=== PATIENT | male | born 1940 | race Caucasian/White ===

== ENCOUNTER 2020-08-09 12:53 | Inpatient (IN) | payer OTHER, MEDICARE ==
[2020-08-09] VITALS (46 sets, daily range): BP systolic 99–120; BP diastolic 45–66
[~2020-08-09] VITALS: Ht 185.4 cm; Wt 87.9 kg
[2020-08-09] MEDS: HEPARIN DRIP/D5W 100UNITS/ML 250 ML IV SCH (14:15)
[2020-08-09] MEDS ORDERED: HEPARIN SODIUM (PORCINE) 5000 UNITS/ML 1ML VIAL IV ONE (14:15)
[2020-08-09] MEDS ORDERED: FER325T PO (14:38)
[2020-08-09] MEDS ORDERED: SUCR1SUS10 GT (14:38)
[2020-08-09] MEDS ORDERED: AMLO-489 PO (14:39)
[2020-08-09] MEDS ORDERED: PANT40PA PO (14:40)
[2020-08-09] MEDS: NOREPINEPHRINE 8 MG/250ML KIT 250 ML IV SCH (15:40)
[2020-08-09] MEDS: MIDAZOLAM DRIP 50 mg/50mL 50 ML IV SCH ×2 (15:48→22:27)
[2020-08-09 16:26] LABS: Basophils # (auto) 0 10 ^3/uL (0-0.2); Basophils % (auto) 0.1 % (0.0-2.0); Eosinophils # (auto) 0 10 ^3/uL (0-0.8); Eosinophils % (auto) 0.1 % (0.0-7.0); Hematocrit 26.2 % (41.0-53.0); Hemoglobin 9.2 g/dL (13.5-17.5); Lymphocytes # (auto) 2.7 10 ^3/uL (0.4-5.4); Lymphocytes % (auto) 16.8 % (10.0-50.0); Mean Corpuscular Hemoglobin 34.2 pg (28.0-32.0); Mean Corpuscular Hgb Conc. 35.2 g/dL (32.0-36.0); Mean Corpuscular Volume 97.2 fL (80.0-100.0); Monocytes # (auto) 1.4 10 ^3/uL (0-1.3); Monocytes % (auto) 8.6 % (0.0-12.0); Neutrophils # (auto) 12.1 10 ^3/uL (1.6-8.6); Neutrophils % (auto) 74.4 % (37.0-80.0); Nucleated Red Blood Cells % 0.9 %; Platelet Count (auto) 195 10^3/uL (140-450); White Blood Cell 16.3 10^3/uL (4.4-10.8)
[2020-08-09 16:27] LABS: Red Cell Distribution Width 26.2 % (11.8-14.3)
[2020-08-09 16:40] LABS: INR 1.23 (0.9-1.15)
[2020-08-09 16:41] LABS: BUN/Creatinine Ratio 38.6; Calcium 8.2 mg/dL (8.5-10.1); Potassium 3.5 mmol/L (3.5-5.1)
[2020-08-09] MEDS: PROPOFOL 100 ML IV SCH (17:36)
[2020-08-09 17:47] LABS: Urine Amorphous Crystal FEW /hpf (None Seen); Urine Bacteria NONE SEEN /hpf (None Seen); Urine Blood 2+ /uL (Negative); Urine Specific Gravity 1.022 (1.001-1.035); Urine WBC 4 /hpf (0 - 3)
[2020-08-09] MEDS: PIPERACILLIN-TAZO 4.5GM 100 ML IV SCH (21:45)
[2020-08-09] MEDS: IPRATROPIUM BROM 0.5 MG/2.5ML INH SOL NEB SCH (22:07)
[2020-08-09 22:48] LABS: INR 1.22 (0.9-1.15); Partial Thromboplastin Time 61.5 sec (23.0-31.2)
[2020-08-10] VITALS (94 sets, daily range): BP systolic 106–133; BP diastolic 37–57
[2020-08-10 00:11] LABS: Magnesium 2.9 mg/dL (1.6-2.6)
[2020-08-10 00:41] LABS: Potassium 3.6 mmol/L (3.5-5.1)
[2020-08-10] MEDS: MIDAZOLAM DRIP 50 mg/50mL 50 ML IV SCH ×6 (02:11→22:24)
[2020-08-10] MEDS: PROPOFOL 100 ML IV SCH (04:34)
[2020-08-10 04:50] LABS: Basophils # (auto) 0 10 ^3/uL (0-0.2); Basophils % (auto) 0.1 % (0.0-2.0); Eosinophils # (auto) 0 10 ^3/uL (0-0.8); Hematocrit 25.5 % (41.0-53.0); Lymphocytes # (auto) 2.6 10 ^3/uL (0.4-5.4); Lymphocytes % (auto) 22.2 % (10.0-50.0); Mean Corpuscular Hemoglobin 34.8 pg (28.0-32.0); Mean Corpuscular Hgb Conc. 35.2 g/dL (32.0-36.0); Mean Corpuscular Volume 98.9 fL (80.0-100.0); Monocytes # (auto) 1.1 10 ^3/uL (0-1.3); Monocytes % (auto) 9.7 % (0.0-12.0); Nucleated Red Blood Cells % 0.9 %; Platelet Count (auto) 182 10^3/uL (140-450); Red Blood Cells 2.58 10^6/uL (4.5-5.90); White Blood Cell 11.7 10^3/uL (4.4-10.8)
[2020-08-10 04:53] LABS: Calcium 8.1 mg/dL (8.5-10.1); Potassium 3.5 mmol/L (3.5-5.1)
[2020-08-10 04:54] LABS: Red Cell Distribution Width 27.2 % (11.8-14.3)
[2020-08-10 04:56] LABS: BUN/Creatinine Ratio 41.3
[2020-08-10 05:15] LABS: INR 1.18 (0.9-1.15); Partial Thromboplastin Time 54.6 sec (23.0-31.2)
[2020-08-10] MEDS: PIPERACILLIN-TAZO 4.5GM 100 ML IV SCH ×3 (05:17→21:35)
[2020-08-10] MEDS: IPRATROPIUM BROM 0.5 MG/2.5ML INH SOL NEB SCH ×3 (06:08→18:27)
[2020-08-10] MEDS: NOREPINEPHRINE 8 MG/250ML KIT 250 ML IV SCH (09:02)
[2020-08-10] MEDS: ASPirin 81 mg TAB PO SCH (09:23)
[2020-08-10] MEDS: PANTOPRAZOLE 40 MG TAB PO SCH (09:23)
[2020-08-10 10:42] LABS: INR 1.18 (0.9-1.15); Partial Thromboplastin Time 57.3 sec (23.0-31.2)
[2020-08-10] MEDS ORDERED: LIDOCAINE 2%HCL (LOCAL ANESTH.) INJ 20ML MDV ONE (12:12)
[2020-08-10] MEDS ORDERED: IOHEXOL 350 MG/ML 100ML IJ ONE (12:12)
[2020-08-10] MEDS ORDERED: SODIUM CHL 0.9% 0 ML ONE (14:29)
[2020-08-10] MEDS ORDERED: ANGIOMAX 250 MG VIAL IV ONE (14:29)
[2020-08-10] MEDS: HEPARIN DRIP/D5W 100UNITS/ML 250 ML IV SCH (16:30)
[2020-08-11] VITALS (98 sets, daily range): BP systolic 96–138; BP diastolic 42–70
[2020-08-11] MEDS: MIDAZOLAM DRIP 50 mg/50mL 50 ML IV SCH (01:45)
[2020-08-11 04:31] LABS: Hemoglobin 8.7 g/dL (13.5-17.5); Platelet Count (auto) 127 10^3/uL (140-450)
[2020-08-11 04:32] LABS: Hematocrit 24.3 % (41.0-53.0); Mean Corpuscular Hemoglobin 36.1 pg (28.0-32.0); Mean Corpuscular Hgb Conc. 35.9 g/dL (32.0-36.0); Mean Corpuscular Volume 100.5 fL (80.0-100.0); Red Blood Cells 2.42 10^6/uL (4.5-5.90); White Blood Cell 6.4 10^3/uL (4.4-10.8)
[2020-08-11 04:34] LABS: Calcium 8.7 mg/dL (8.5-10.1); Potassium 3.8 mmol/L (3.5-5.1)
[2020-08-11 04:36] LABS: BUN/Creatinine Ratio 34.9
[2020-08-11 04:38] LABS: Basophils % (manual) 0 (0.0-2.0); Blast Cells 0; Eosinophils % (manual) 0 (0-7); Metamyelocytes % 0; Promyelocytes % 0; Reactive Lymphocytes 0
[2020-08-11] MEDS: PIPERACILLIN-TAZO 4.5GM 100 ML IV SCH ×3 (05:47→20:53)
[2020-08-11] MEDS: IPRATROPIUM BROM 0.5 MG/2.5ML INH SOL NEB SCH ×3 (06:00→20:06)
[2020-08-11 07:03] LABS: Band Neutrophils % (manual) 6; Lymphocytes % (manual) 43 (10.0-50.0); Monocytes % (manual) 6 (0-12); Myelocytes % 2
[2020-08-11] MEDS: PANTOPRAZOLE 40 MG TAB PO SCH (10:00)
[2020-08-11] MEDS: ASPirin 81 mg TAB PO SCH (10:00)
[2020-08-11] MEDS: DOBUTamine 1000MCG/ML 250 ML IV SCH (14:20)
[2020-08-11] MEDS: PROPOFOL 100 ML IV SCH ×2 (14:45→21:29)
[2020-08-11] MEDS: NOREPINEPHRINE 8 MG/250ML KIT 250 ML IV SCH (14:45)
[2020-08-11] MEDS: AMIODARONE HCL 200 MG TAB NG SCH (20:53)
[2020-08-12] VITALS (83 sets, daily range): BP systolic 103–140; BP diastolic 43–64
[2020-08-12 00:45] LABS: Hemoglobin 7.5 g/dL (13.5-17.5); Mean Corpuscular Volume 101.2 fL (80.0-100.0); Platelet Count (auto) 100 10^3/uL (140-450)
[2020-08-12 00:46] LABS: Hematocrit 22.1 % (41.0-53.0); Mean Corpuscular Hemoglobin 34.5 pg (28.0-32.0); Mean Corpuscular Hgb Conc. 34.1 g/dL (32.0-36.0); Red Blood Cells 2.18 10^6/uL (4.5-5.90); White Blood Cell 12.4 10^3/uL (4.4-10.8)
[2020-08-12 00:59] LABS: BUN/Creatinine Ratio 33.7; Calcium 8.2 mg/dL (8.5-10.1); Magnesium 2.7 mg/dL (1.6-2.6); Potassium 3.9 mmol/L (3.5-5.1)
[2020-08-12 01:01] LABS: Red Cell Distribution Width 28.1 % (11.8-14.3)
[2020-08-12 01:02] LABS: Basophils % (manual) 0 (0.0-2.0); Blast Cells 0; Eosinophils % (manual) 0 (0-7); Metamyelocytes % 0; Promyelocytes % 0; Reactive Lymphocytes 0
[2020-08-12 03:43] LABS: Band Neutrophils % (manual) 17; Lymphocytes % (manual) 31 (10.0-50.0); Monocytes % (manual) 6 (0-12); Myelocytes % 1
[2020-08-12] MEDS: IPRATROPIUM BROM 0.5 MG/2.5ML INH SOL NEB SCH ×3 (06:17→22:20)
[2020-08-12] MEDS: PIPERACILLIN-TAZO 4.5GM 100 ML IV SCH ×2 (06:19→13:41)
[2020-08-12] MEDS: ACETAMINOPHEN 500 MG TAB PO PRN (06:53)
[2020-08-12] MEDS: AMIODARONE HCL 200 MG TAB NG SCH ×2 (09:42→23:06)
[2020-08-12] MEDS: PANTOPRAZOLE 40 MG TAB PO SCH (09:42)
[2020-08-12] MEDS: ASPirin 81 mg TAB PO SCH (09:42)
[2020-08-12] MEDS: DOBUTamine 1000MCG/ML 250 ML IV SCH (10:17)
[2020-08-12] MEDS: MIDAZOLAM DRIP 50 mg/50mL 50 ML IV SCH (14:45)
[2020-08-12] MEDS: NOREPINEPHRINE 8 MG/250ML KIT 250 ML IV SCH (14:45)
[2020-08-12] MEDS ORDERED: FUROSEMIDE 40 MG/4 ML VIAL IV ONE (23:00)
[2020-08-13] VITALS (33 sets, daily range): BP systolic 112–138; BP diastolic 43–81
[2020-08-13] MEDS: PIPERACILLIN-TAZO 4.5GM 100 ML IV SCH ×4 (00:07→21:39)
[2020-08-13] MEDS ORDERED: HYDROcodone-ACET 5/325MG TAB PO ONE (03:00)
[2020-08-13] MEDS ORDERED: HYDROcodone-ACET 5/325MG TAB ONE (03:07)
[2020-08-13 04:49] LABS: Hemoglobin 8.2 g/dL (13.5-17.5); Mean Corpuscular Hgb Conc. 35.9 g/dL (32.0-36.0)
[2020-08-13 04:52] LABS: Mean Corpuscular Hemoglobin 34.6 pg (28.0-32.0); Mean Corpuscular Volume 96.5 fL (80.0-100.0); Platelet Count (auto) 62 10^3/uL (140-450); Red Blood Cells 2.38 10^6/uL (4.5-5.90); White Blood Cell 23.1 10^3/uL (4.4-10.8)
[2020-08-13 05:00] LABS: Albumin 2.5 g/dL (3.4-5.0); Calcium 8.6 mg/dL (8.5-10.1); Magnesium 2.8 mg/dL (1.6-2.6); Potassium 3.9 mmol/L (3.5-5.1)
[2020-08-13 05:04] LABS: BUN/Creatinine Ratio 37.8; Bilirubin, Total 6.4 mg/dL (0.2-1.0); Phosphorus 4.3 mg/dL (2.5-4.90); Total Protein 5.5 g/dL (6.4-8.2)
[2020-08-13 05:06] LABS: Red Cell Distribution Width 22.6 % (11.8-14.3)
[2020-08-13 05:08] LABS: Basophils % (manual) 0 (0.0-2.0); Blast Cells 0; Promyelocytes % 0; Reactive Lymphocytes 0
[2020-08-13 05:55] LABS: Band Neutrophils % (manual) 9; Eosinophils % (manual) 1 (0-7); Lymphocytes % (manual) 33 (10.0-50.0); Metamyelocytes % 2; Monocytes % (manual) 7 (0-12); Myelocytes % 5
[2020-08-13] MEDS: IPRATROPIUM BROM 0.5 MG/2.5ML INH SOL NEB SCH ×3 (06:04→18:47)
[2020-08-13] MEDS: AMIODARONE HCL 200 MG TAB NG SCH ×2 (09:50→21:39)
[2020-08-13] MEDS: FUROSEMIDE 40 MG/4 ML VIAL IV SCH (09:50)
[2020-08-13] MEDS: POTASSIUM CHL 20 Meq TABLET PO SCH (09:51)
[2020-08-13] MEDS: PANTOPRAZOLE 40 MG TAB PO SCH (09:52)
[2020-08-13] MEDS: ASPirin 81 mg TAB PO SCH (11:00)
[2020-08-13] MEDS: DOBUTamine 1000MCG/ML 250 ML IV SCH (12:01)
[2020-08-14] VITALS (9 sets, daily range): BP systolic 107–127; BP diastolic 42–56
[2020-08-14] MEDS: DOBUTamine 1000MCG/ML 250 ML IV SCH ×2 (00:48→10:21)
[2020-08-14] MEDS: HYDROcodone-ACET 5/325MG TAB PO PRN ×2 (06:29→15:15)
[2020-08-14] MEDS: PIPERACILLIN-TAZO 4.5GM 100 ML IV SCH ×3 (06:33→22:55)
[2020-08-14] MEDS: IPRATROPIUM BROM 0.5 MG/2.5ML INH SOL NEB SCH ×3 (07:24→19:41)
[2020-08-14] MEDS: AMIODARONE HCL 200 MG TAB NG SCH ×2 (09:57→22:55)
[2020-08-14] MEDS: FUROSEMIDE 40 MG/4 ML VIAL IV SCH (09:58)
[2020-08-14] MEDS: POTASSIUM CHL 20 Meq TABLET PO SCH (09:59)
[2020-08-14] MEDS: PANTOPRAZOLE 40 MG TAB PO SCH (09:59)
[2020-08-14] MEDS: ASPirin 81 mg TAB PO SCH (09:59)
[2020-08-15] MEDS: HYDROcodone-ACET 5/325MG TAB PO PRN ×2 (04:24→16:12)
[2020-08-15 05:00] VITALS: BP 112/52
[2020-08-15] MEDS: IPRATROPIUM BROM 0.5 MG/2.5ML INH SOL NEB SCH ×3 (06:12→23:01)
[2020-08-15] MEDS: PIPERACILLIN-TAZO 4.5GM 100 ML IV SCH ×3 (07:03→21:35)
[2020-08-15 08:38] VITALS: BP 117/55
[2020-08-15] MEDS: FUROSEMIDE 40 MG/4 ML VIAL IV SCH (09:33)
[2020-08-15] MEDS: POTASSIUM CHL 20 Meq TABLET PO SCH (09:33)
[2020-08-15] MEDS: PANTOPRAZOLE 40 MG TAB PO SCH (09:34)
[2020-08-15] MEDS: ASPirin 81 mg TAB PO SCH (09:34)
[2020-08-15] MEDS: AMIODARONE HCL 200 MG TAB NG SCH ×2 (09:34→21:36)
[2020-08-15 10:41] VITALS: BP 119/56
[2020-08-15 12:47] VITALS: BP 118/55
[2020-08-15] MEDS: DOBUTamine 1000MCG/ML 250 ML IV SCH (16:00)
[2020-08-15 17:02] VITALS: BP 118/61
[2020-08-15 21:34] VITALS: BP 125/61
[2020-08-16] MEDS: HYDROcodone-ACET 5/325MG TAB PO PRN ×3 (00:12→17:45)
[2020-08-16 05:10] VITALS: BP 120/54
[2020-08-16] MEDS: ACETAMINOPHEN 500 MG TAB PO PRN (06:01)
[2020-08-16] MEDS: PIPERACILLIN-TAZO 4.5GM 100 ML IV SCH ×4 (06:01→21:59)
[2020-08-16] MEDS: IPRATROPIUM BROM 0.5 MG/2.5ML INH SOL NEB SCH ×3 (06:52→22:41)
[2020-08-16 08:39] VITALS: BP 114/64
[2020-08-16] MEDS: AMIODARONE HCL 200 MG TAB NG SCH ×2 (09:38→21:59)
[2020-08-16] MEDS: POTASSIUM CHL 20 Meq TABLET PO SCH (09:38)
[2020-08-16] MEDS: FUROSEMIDE 40 MG/4 ML VIAL IV SCH (09:38)
[2020-08-16] MEDS: ASPirin 81 mg TAB PO SCH (09:38)
[2020-08-16] MEDS: PANTOPRAZOLE 40 MG TAB PO SCH (09:39)
[2020-08-16] MEDS ORDERED: IOHEXOL 300 MG/ML 100ML BOTTLE IJ ONE (11:23)
[2020-08-16 12:20] LABS: Hematocrit 20.4 % (41.0-53.0); Hemoglobin 7.2 g/dL (13.5-17.5); Red Blood Cells 2.14 10^6/uL (4.5-5.90)
[2020-08-16 12:22] LABS: Mean Corpuscular Hemoglobin 33.7 pg (28.0-32.0); Mean Corpuscular Hgb Conc. 35.4 g/dL (32.0-36.0); Mean Corpuscular Volume 95.2 fL (80.0-100.0); Platelet Count (auto) 66 10^3/uL (140-450); Red Cell Distribution Width 24.3 % (11.8-14.3); White Blood Cell 12.5 10^3/uL (4.4-10.8)
[2020-08-16 12:29] LABS: Basophils % (manual) 0 (0.0-2.0); Blast Cells 0; Promyelocytes % 0; Reactive Lymphocytes 0
[2020-08-16 12:37] VITALS: BP 95/55
[2020-08-16 13:29] LABS: Band Neutrophils % (manual) 3; Eosinophils % (manual) 1 (0-7); Lymphocytes % (manual) 38 (10.0-50.0); Metamyelocytes % 10; Monocytes % (manual) 5 (0-12); Myelocytes % 6
[2020-08-16 16:23] LABS: Urine Bacteria NONE SEEN /hpf (None Seen); Urine Blood 2+ /uL (Negative); Urine Budding Yeast OCCASIONAL /hpf (None Seen); Urine WBC 11 /hpf (0 - 3)
[2020-08-16] MEDS: DOBUTamine 1000MCG/ML 250 ML IV SCH (16:49)
[2020-08-16 16:53] VITALS: BP 97/48
[2020-08-16 22:00] VITALS: BP 116/48
[2020-08-17] MEDS: HYDROcodone-ACET 5/325MG TAB PO PRN ×3 (01:46→22:03)
[2020-08-17 05:00] VITALS: BP 119/53
[2020-08-17] MEDS: PIPERACILLIN-TAZO 4.5GM 100 ML IV SCH ×3 (05:05→22:02)
[2020-08-17] MEDS: IPRATROPIUM BROM 0.5 MG/2.5ML INH SOL NEB SCH ×4 (07:30→22:47)
[2020-08-17 08:54] VITALS: BP 103/45
[2020-08-17] MEDS: AMIODARONE HCL 200 MG TAB NG SCH ×2 (09:45→22:02)
[2020-08-17] MEDS: PANTOPRAZOLE 40 MG TAB PO SCH (09:45)
[2020-08-17] MEDS: ASPirin 81 mg TAB PO SCH (09:45)
[2020-08-17 11:55] LABS: INR 1.18 (0.9-1.15); Partial Thromboplastin Time 38.4 sec (23.0-31.2)
[2020-08-17 12:15] LABS: Calcium 8.8 mg/dL (8.5-10.1); Potassium 3.3 mmol/L (3.5-5.1)
[2020-08-17 12:17] LABS: BUN/Creatinine Ratio 28.4
[2020-08-17 12:32] VITALS: BP 113/54
[2020-08-17] MEDS ORDERED: VANCOMYCIN 1GM/250ML 250 ML IV ONE (12:36)
[2020-08-17] MEDS ORDERED: LIDOCAINE 2%HCL (LOCAL ANESTH.) INJ 20ML MDV ONE ×2 (13:09→14:00)
[2020-08-17] MEDS ORDERED: IOHEXOL 350 MG/ML 100ML IJ ONE (13:09)
[2020-08-17] MEDS ORDERED: fentaNYL CITRATE 100 MCG/2 ML VL ONE (13:17)
[2020-08-17] MEDS ORDERED: VANCOMYCIN HCL 1000 MG VL ONE (13:17)
[2020-08-17] MEDS ORDERED: MIDAZOLAM HCL 1MG/1ML-2 ML VIAL ONE (13:18)
[2020-08-17] MEDS ORDERED: FUROSEMIDE 20 MG/2 ML VIAL ONE (14:31)
[2020-08-17] MEDS ORDERED: SODIUM CHLORIDE 0.9% 1,000 ML IV SCH (15:15)
[2020-08-17 16:34] VITALS: BP 102/46
[2020-08-17] MEDS ORDERED: POTASSIUM CHL 20 Meq TABLET PO ONE (17:30)
[2020-08-17] MEDS: DOBUTamine 1000MCG/ML 250 ML IV SCH (17:45)
[2020-08-17] MEDS: VANCOMYCIN 1GM/250ML 250 ML IV SCH (22:02)
[2020-08-18] VITALS (7 sets, daily range): BP systolic 97–119; BP diastolic 45–55
[2020-08-18] MEDS: DOBUTamine 1000MCG/ML 250 ML IV SCH (03:01)
[2020-08-18] MEDS: HYDROcodone-ACET 5/325MG TAB PO PRN ×3 (03:02→19:24)
[2020-08-18] MEDS: PIPERACILLIN-TAZO 4.5GM 100 ML IV SCH ×3 (05:40→21:44)
[2020-08-18] MEDS: IPRATROPIUM BROM 0.5 MG/2.5ML INH SOL NEB SCH ×3 (06:19→23:31)
[2020-08-18] MEDS: PANTOPRAZOLE 40 MG TAB PO SCH (09:36)
[2020-08-18] MEDS: AMIODARONE HCL 200 MG TAB NG SCH ×2 (09:36→21:44)
[2020-08-18] MEDS: VANCOMYCIN 1GM/250ML 250 ML IV SCH (09:36)
[2020-08-18] MEDS: ASPirin 81 mg TAB PO SCH (09:37)
[2020-08-18 15:46] LABS: BUN/Creatinine Ratio 25.3; Calcium 8.5 mg/dL (8.5-10.1); Potassium 3.6 mmol/L (3.5-5.1)
[2020-08-19] VITALS (13 sets, daily range): BP systolic 91–109; BP diastolic 42–65
[2020-08-19] MEDS: HYDROcodone-ACET 5/325MG TAB PO PRN ×4 (01:49→18:12)
[2020-08-19] MEDS: PIPERACILLIN-TAZO 4.5GM 100 ML IV SCH ×3 (06:02→21:00)
[2020-08-19] MEDS: IPRATROPIUM BROM 0.5 MG/2.5ML INH SOL NEB SCH ×3 (06:05→22:32)
[2020-08-19] MEDS: PANTOPRAZOLE 40 MG TAB PO SCH (09:32)
[2020-08-19] MEDS: ASPirin 81 mg TAB PO SCH (09:32)
[2020-08-19] MEDS: AMIODARONE HCL 200 MG TAB NG SCH (09:33)
[2020-08-20] VITALS (13 sets, daily range): BP systolic 96–111; BP diastolic 49–67
[2020-08-20] MEDS: HYDROcodone-ACET 5/325MG TAB PO PRN ×3 (05:17→19:40)
[2020-08-20] MEDS: PIPERACILLIN-TAZO 4.5GM 100 ML IV SCH ×2 (05:17→14:14)
[2020-08-20] MEDS: IPRATROPIUM BROM 0.5 MG/2.5ML INH SOL NEB SCH ×3 (06:07→22:53)
[2020-08-20] MEDS: PANTOPRAZOLE 40 MG TAB PO SCH (09:56)
[2020-08-20] MEDS: ASPirin 81 mg TAB PO SCH (09:56)
[2020-08-20 12:11] LABS: Hematocrit 23.2 % (41.0-53.0); Hemoglobin 8.5 g/dL (13.5-17.5); Mean Corpuscular Hgb Conc. 36.5 g/dL (32.0-36.0); Mean Corpuscular Volume 93.3 fL (80.0-100.0); Platelet Count (auto) 84 10^3/uL (140-450); Red Blood Cells 2.48 10^6/uL (4.5-5.90); White Blood Cell 4.9 10^3/uL (4.4-10.8)
[2020-08-20 12:14] LABS: Red Cell Distribution Width 22.6 % (11.8-14.3)
[2020-08-20 12:16] LABS: Band Neutrophils % (manual) 0; Basophils % (manual) 0 (0.0-2.0); Blast Cells 0; Reactive Lymphocytes 0
[2020-08-20 12:41] LABS: Eosinophils % (manual) 2 (0-7); Lymphocytes % (manual) 43 (10.0-50.0); Metamyelocytes % 1; Monocytes % (manual) 23 (0-12); Myelocytes % 2; Promyelocytes % 2
[2020-08-20 13:07] LABS: Calcium 8.6 mg/dL (8.5-10.1); Potassium 3.6 mmol/L (3.5-5.1)
[2020-08-20 13:12] LABS: Albumin 2.3 g/dL (3.4-5.0); BUN/Creatinine Ratio 22.3; Bilirubin, Direct 6.1 mg/dL (0-0.2); Bilirubin, Total 8.6 mg/dL (0.2-1.0); Total Protein 5.5 g/dL (6.4-8.2)
[2020-08-21] MEDS: HYDROcodone-ACET 5/325MG TAB PO PRN ×5 (00:01→21:23)
[2020-08-21 01:40] VITALS: BP 106/51
[2020-08-21] MEDS: IPRATROPIUM BROM 0.5 MG/2.5ML INH SOL NEB SCH ×3 (05:56→23:04)
[2020-08-21 09:26] VITALS: BP 108/53
[2020-08-21] MEDS: ASPirin 81 mg TAB PO SCH (11:05)
[2020-08-21] MEDS: PANTOPRAZOLE 40 MG TAB PO SCH (11:05)
[2020-08-21 13:01] VITALS: BP 96/45
[2020-08-21] MEDS: ACETAMINOPHEN 325 MG TAB PO PRN (17:20)
[2020-08-21 20:50] LABS: Hematocrit 20.7 % (41.0-53.0); Hemoglobin 7.6 g/dL (13.5-17.5); Mean Corpuscular Hemoglobin 34.4 pg (28.0-32.0); Mean Corpuscular Hgb Conc. 36.9 g/dL (32.0-36.0); Mean Corpuscular Volume 93.2 fL (80.0-100.0); Platelet Count (auto) 85 10^3/uL (140-450); Red Blood Cells 2.22 10^6/uL (4.5-5.90); White Blood Cell 5.2 10^3/uL (4.4-10.8)
[2020-08-21 20:57] LABS: Red Cell Distribution Width 22.2 % (11.8-14.3)
[2020-08-21 20:59] LABS: Basophils % (manual) 0 (0.0-2.0); Blast Cells 0; Metamyelocytes % 0; Promyelocytes % 0; Reactive Lymphocytes 0
[2020-08-21 21:09] LABS: Albumin 2.2 g/dL (3.4-5.0); Calcium 8.7 mg/dL (8.5-10.1); Potassium 3.7 mmol/L (3.5-5.1)
[2020-08-21 21:11] LABS: % Iron Saturation 90.1 % (20-55)
[2020-08-21 21:12] LABS: BUN/Creatinine Ratio 23.8; Bilirubin, Total 8.3 mg/dL (0.2-1.0); Total Protein 5.4 g/dL (6.4-8.2)
[2020-08-21 21:15] LABS: Band Neutrophils % (manual) 3; Eosinophils % (manual) 1 (0-7); Lymphocytes % (manual) 59 (10.0-50.0); Monocytes % (manual) 15 (0-12); Myelocytes % 2
[2020-08-21 22:00] VITALS: BP 107/57
[2020-08-22 05:00] VITALS: BP 101/54
[2020-08-22] MEDS: IPRATROPIUM BROM 0.5 MG/2.5ML INH SOL NEB SCH ×3 (07:04→22:37)
[2020-08-22 09:00] VITALS: BP 110/49
[2020-08-22] MEDS ORDERED: LIDOCAINE VISCOUS 2% 15ML UD ONE (09:50)
[2020-08-22] MEDS ORDERED: MIDAZOLAM HCL 5 MG/ML-1ML VIAL ONE (09:50)
[2020-08-22] MEDS ORDERED: diphenhdrAMINE HCL 50 MG/1 ML VL ONE (09:50)
[2020-08-22] MEDS ORDERED: fentaNYL CITRATE 100 MCG/2 ML VL ONE ×2 (09:51→14:16)
[2020-08-22] MEDS: PANTOPRAZOLE 40 MG TAB PO SCH (10:00)
[2020-08-22] MEDS: ASPirin 81 mg TAB PO SCH (10:00)
[2020-08-22 13:00] VITALS: BP 100/50
[2020-08-22] MEDS ORDERED: PHENYLEPHRINE HCL 10 MG/ML VL ONE (14:16)
[2020-08-22] MEDS ORDERED: PROPOFOL 10 MG/ML 20 ML IV ONE (14:16)
[2020-08-22] MEDS ORDERED: ONDANSETRON HCL 4 MG/2 ML VIAL IV PRN (14:45)
[2020-08-22 17:00] VITALS: BP 120/69
[2020-08-22] MEDS: HYDROcodone-ACET 5/325MG TAB PO PRN (20:52)
[2020-08-22 22:00] VITALS: BP 106/51
[2020-08-23 05:00] VITALS: BP 109/55
[2020-08-23] MEDS: IPRATROPIUM BROM 0.5 MG/2.5ML INH SOL NEB SCH ×3 (06:12→22:42)
[2020-08-23] MEDS: ASPirin 81 mg TAB PO SCH (08:55)
[2020-08-23] MEDS: PANTOPRAZOLE 40 MG TAB PO SCH (08:55)
[2020-08-23] MEDS: HYDROcodone-ACET 5/325MG TAB PO PRN ×2 (08:56→20:16)
[2020-08-23 09:00] VITALS: BP 104/55
[2020-08-23 09:53] LABS: Hemoglobin 7.3 g/dL (13.5-17.5)
[2020-08-23 09:56] LABS: Hematocrit 20.1 % (41.0-53.0); Mean Corpuscular Hgb Conc. 36.5 g/dL (32.0-36.0); Mean Corpuscular Volume 95.9 fL (80.0-100.0); Platelet Count (auto) 113 10^3/uL (140-450)
[2020-08-23 10:10] LABS: Basophils % (manual) 0 (0.0-2.0); Blast Cells 0; Myelocytes % 0; Promyelocytes % 0; Red Cell Distribution Width 25.3 % (11.8-14.3)
[2020-08-23 10:14] LABS: Albumin 2.3 g/dL (3.4-5.0); Calcium 9.1 mg/dL (8.5-10.1); Potassium 3.9 mmol/L (3.5-5.1)
[2020-08-23 10:18] LABS: BUN/Creatinine Ratio 25.4; Bilirubin, Total 7.9 mg/dL (0.2-1.0); Total Protein 5.6 g/dL (6.4-8.2)
[2020-08-23 10:32] LABS: Band Neutrophils % (manual) 1; Eosinophils % (manual) 1 (0-7); Lymphocytes % (manual) 53 (10.0-50.0); Metamyelocytes % 1; Monocytes % (manual) 18 (0-12); Reactive Lymphocytes 1
[2020-08-23 13:00] VITALS: BP 103/47
[2020-08-23 17:00] VITALS: BP 98/48
[2020-08-23 22:00] VITALS: BP 109/61
[2020-08-24 03:22] VITALS: BP 109/61
[2020-08-24 05:00] VITALS: BP 102/49
[2020-08-24] MEDS: IPRATROPIUM BROM 0.5 MG/2.5ML INH SOL NEB SCH ×3 (06:24→20:11)
[2020-08-24] MEDS: HYDROcodone-ACET 5/325MG TAB PO PRN ×4 (07:15→21:53)
[2020-08-24 09:22] VITALS: BP 104/52
[2020-08-24] MEDS: ASPirin 81 mg TAB PO SCH (10:23)
[2020-08-24] MEDS: PANTOPRAZOLE 40 MG TAB PO SCH (10:23)
[2020-08-24 13:00] VITALS: BP 109/69
[2020-08-24 14:02] LABS: Hepatitis B Surface Antibody Negative
[2020-08-24 14:35] LABS: Hepatitis A Total Antibody Negative
[2020-08-24 15:31] LABS: Hepatitis B Core Total AB Negative; Hepatitis C Antibody Negative (Negative)
[2020-08-24 15:32] LABS: Hepatitis B Surface Antigen Negative (Negative)
[2020-08-24 16:38] VITALS: BP 110/55
[2020-08-24 22:00] VITALS: BP 112/55
[2020-08-25] VITALS (10 sets, daily range): BP systolic 103–124; BP diastolic 51–84
[2020-08-25] MEDS: HYDROcodone-ACET 5/325MG TAB PO PRN ×3 (03:30→17:26)
[2020-08-25] MEDS: IPRATROPIUM BROM 0.5 MG/2.5ML INH SOL NEB SCH ×3 (05:53→22:35)
[2020-08-25 06:18] LABS: Hematocrit 18.6 % (41.0-53.0); Mean Corpuscular Hemoglobin 36.1 pg (28.0-32.0); Mean Corpuscular Volume 97.4 fL (80.0-100.0); Platelet Count (auto) 129 10^3/uL (140-450); Red Blood Cells 1.91 10^6/uL (4.5-5.90); White Blood Cell 7.5 10^3/uL (4.4-10.8)
[2020-08-25 06:29] LABS: Albumin 2.3 g/dL (3.4-5.0); Calcium 9.1 mg/dL (8.5-10.1); Potassium 4.2 mmol/L (3.5-5.1); Red Cell Distribution Width 26.3 % (11.8-14.3)
[2020-08-25 06:30] LABS: Band Neutrophils % (manual) 0; Basophils % (manual) 0 (0.0-2.0); Blast Cells 0; Hemoglobin 6.9 g/dL (13.5-17.5); Metamyelocytes % 0; Myelocytes % 0; Promyelocytes % 0; Reactive Lymphocytes 0
[2020-08-25 06:32] LABS: BUN/Creatinine Ratio 25.4; Total Protein 5.3 g/dL (6.4-8.2)
[2020-08-25 07:14] LABS: Eosinophils % (manual) 4 (0-7); Lymphocytes % (manual) 71 (10.0-50.0); Monocytes % (manual) 8 (0-12)
[2020-08-25] MEDS: PANTOPRAZOLE 40 MG TAB PO SCH (10:14)
[2020-08-25] MEDS: URSODIOL 300 MG CAP PO SCH (21:16)
[2020-08-25 22:10] LABS: Hematocrit 21.5 % (41.0-53.0)
[2020-08-26] VITALS (7 sets, daily range): BP systolic 103–127; BP diastolic 50–68
[2020-08-26] MEDS: HYDROcodone-ACET 5/325MG TAB PO PRN ×4 (00:10→21:18)
[2020-08-26] MEDS: IPRATROPIUM BROM 0.5 MG/2.5ML INH SOL NEB SCH ×3 (06:28→23:26)
[2020-08-26] MEDS: PANTOPRAZOLE 40 MG TAB PO SCH (10:54)
[2020-08-26] MEDS: URSODIOL 300 MG CAP PO SCH ×2 (10:54→21:18)
[2020-08-27] MEDS: HYDROcodone-ACET 5/325MG TAB PO PRN ×4 (01:26→23:52)
[2020-08-27 02:48] VITALS: BP 112/57
[2020-08-27 05:00] VITALS: BP 117/64
[2020-08-27] MEDS: IPRATROPIUM BROM 0.5 MG/2.5ML INH SOL NEB SCH ×2 (07:09→22:38)
[2020-08-27 09:00] VITALS: BP 113/59
[2020-08-27] MEDS: PANTOPRAZOLE 40 MG TAB PO SCH (10:19)
[2020-08-27] MEDS: DOCUSATE SOD 100 MG CAP PO SCH ×2 (10:19→21:50)
[2020-08-27] MEDS: URSODIOL 300 MG CAP PO SCH ×2 (10:20→21:49)
[2020-08-27 12:23] VITALS: BP 113/59
[2020-08-27 13:55] LABS: Hematocrit 24.1 % (41.0-53.0); Hemoglobin 8.6 g/dL (13.5-17.5); Mean Corpuscular Hemoglobin 34.6 pg (28.0-32.0)
[2020-08-27 13:57] LABS: Mean Corpuscular Hgb Conc. 35.7 g/dL (32.0-36.0); Mean Corpuscular Volume 96.9 fL (80.0-100.0); Platelet Count (auto) 130 10^3/uL (140-450); Red Blood Cells 2.49 10^6/uL (4.5-5.90); White Blood Cell 8.3 10^3/uL (4.4-10.8)
[2020-08-27 14:01] LABS: Basophils % (manual) 0 (0.0-2.0); Blast Cells 0; Eosinophils % (manual) 0 (0-7); Myelocytes % 0; Promyelocytes % 0; Reactive Lymphocytes 0
[2020-08-27 14:38] LABS: Band Neutrophils % (manual) 1; Lymphocytes % (manual) 65 (10.0-50.0); Metamyelocytes % 1; Monocytes % (manual) 4 (0-12)
[2020-08-27 15:19] LABS: Albumin 2.4 g/dL (3.4-5.0); BUN/Creatinine Ratio 27.6; Calcium 8.7 mg/dL (8.5-10.1); Potassium 4.2 mmol/L (3.5-5.1)
[2020-08-27 15:21] LABS: Total Protein 5.6 g/dL (6.4-8.2)
[2020-08-27 16:24] VITALS: BP 114/54
[2020-08-27 22:00] VITALS: BP 111/54
[2020-08-28] MEDS: HYDROcodone-ACET 5/325MG TAB PO PRN ×3 (04:30→15:46)
[2020-08-28 05:51] VITALS: BP 110/50
[2020-08-28 06:04] LABS: Hematocrit 22.3 % (41.0-53.0); Hemoglobin 8.1 g/dL (13.5-17.5); Mean Corpuscular Hemoglobin 35.1 pg (28.0-32.0); Mean Corpuscular Hgb Conc. 36.4 g/dL (32.0-36.0); Mean Corpuscular Volume 96.7 fL (80.0-100.0); Platelet Count (auto) 131 10^3/uL (140-450); White Blood Cell 8.6 10^3/uL (4.4-10.8)
[2020-08-28] MEDS: IPRATROPIUM BROM 0.5 MG/2.5ML INH SOL NEB SCH ×3 (06:27→18:50)
[2020-08-28 07:15] LABS: Band Neutrophils % (manual) 0; Basophils % (manual) 0 (0.0-2.0); Blast Cells 0; Promyelocytes % 0; Reactive Lymphocytes 0; Red Cell Distribution Width 25.4 % (11.8-14.3)
[2020-08-28 08:49] LABS: Eosinophils % (manual) 4 (0-7); Lymphocytes % (manual) 61 (10.0-50.0); Metamyelocytes % 1; Monocytes % (manual) 7 (0-12); Myelocytes % 1
[2020-08-28 08:56] VITALS: BP 114/52
[2020-08-28] MEDS: PANTOPRAZOLE 40 MG TAB PO SCH (10:17)
[2020-08-28] MEDS: DOCUSATE SOD 100 MG CAP PO SCH ×2 (10:17→21:46)
[2020-08-28] MEDS: URSODIOL 300 MG CAP PO SCH ×2 (11:14→21:46)
[2020-08-28 12:29] VITALS: BP 103/54
[2020-08-28 16:22] VITALS: BP 103/56
[2020-08-28 22:00] VITALS: BP 108/51
[2020-08-28] MEDS: ACETAMINOPHEN 325 MG TAB PO PRN (23:21)
[2020-08-29 06:00] VITALS: BP 105/51
[2020-08-29 06:52] LABS: Hemoglobin 7.8 g/dL (13.5-17.5)
[2020-08-29 06:54] LABS: Hematocrit 21.8 % (41.0-53.0); Mean Corpuscular Hemoglobin 34.9 pg (28.0-32.0); Mean Corpuscular Hgb Conc. 35.8 g/dL (32.0-36.0); Mean Corpuscular Volume 97.6 fL (80.0-100.0); Platelet Count (auto) 147 10^3/uL (140-450); Red Blood Cells 2.23 10^6/uL (4.5-5.90); White Blood Cell 7.7 10^3/uL (4.4-10.8)
[2020-08-29] MEDS: IPRATROPIUM BROM 0.5 MG/2.5ML INH SOL NEB SCH ×3 (06:56→19:10)
[2020-08-29 07:00] LABS: Band Neutrophils % (manual) 0; Basophils % (manual) 0 (0.0-2.0); Blast Cells 0; Metamyelocytes % 0; Myelocytes % 0; Promyelocytes % 0; Reactive Lymphocytes 0; Red Cell Distribution Width 26.1 % (11.8-14.3)
[2020-08-29 07:14] LABS: Albumin 2.2 g/dL (3.4-5.0); Potassium 3.7 mmol/L (3.5-5.1)
[2020-08-29 07:17] LABS: BUN/Creatinine Ratio 21.3; Bilirubin, Total 5.8 mg/dL (0.2-1.0); Total Protein 5.4 g/dL (6.4-8.2)
[2020-08-29 09:00] VITALS: BP 125/61
[2020-08-29 10:49] LABS: Eosinophils % (manual) 3 (0-7); Lymphocytes % (manual) 65 (10.0-50.0); Monocytes % (manual) 13 (0-12)
[2020-08-29] MEDS: PANTOPRAZOLE 40 MG TAB PO SCH (10:53)
[2020-08-29] MEDS: HYDROcodone-ACET 5/325MG TAB PO PRN ×2 (10:53→20:02)
[2020-08-29] MEDS: DOCUSATE SOD 100 MG CAP PO SCH ×2 (10:53→22:30)
[2020-08-29] MEDS: URSODIOL 300 MG CAP PO SCH ×2 (12:26→22:30)
[2020-08-29 13:00] VITALS: BP 101/54
[2020-08-29 17:00] VITALS: BP 105/62
[2020-08-29 21:13] VITALS: BP 105/62
[2020-08-30 05:00] VITALS: BP_SYST 103; BP_SYST 143; BP_DIAS 49; BP_DIAS 82
[2020-08-30] MEDS: HYDROcodone-ACET 5/325MG TAB PO PRN ×3 (06:38→23:48)
[2020-08-30] MEDS: IPRATROPIUM BROM 0.5 MG/2.5ML INH SOL NEB SCH ×3 (06:42→22:27)
[2020-08-30 07:23] LABS: Hematocrit 23.8 % (41.0-53.0); Hemoglobin 8.4 g/dL (13.5-17.5); Platelet Count (auto) 162 10^3/uL (140-450); White Blood Cell 6.7 10^3/uL (4.4-10.8)
[2020-08-30 07:25] LABS: Mean Corpuscular Hgb Conc. 35.3 g/dL (32.0-36.0); Mean Corpuscular Volume 99.3 fL (80.0-100.0)
[2020-08-30 07:27] LABS: Red Cell Distribution Width 27.4 % (11.8-14.3)
[2020-08-30 07:28] LABS: Basophils % (manual) 0 (0.0-2.0); Blast Cells 0; Metamyelocytes % 0; Myelocytes % 0; Promyelocytes % 0
[2020-08-30 07:41] LABS: Albumin 2.4 g/dL (3.4-5.0); Calcium 9.3 mg/dL (8.5-10.1); Potassium 3.8 mmol/L (3.5-5.1)
[2020-08-30 07:46] LABS: BUN/Creatinine Ratio 24.2; Bilirubin, Total 5.8 mg/dL (0.2-1.0); Total Protein 5.7 g/dL (6.4-8.2)
[2020-08-30 08:40] LABS: Band Neutrophils % (manual) 2; Eosinophils % (manual) 5 (0-7); Lymphocytes % (manual) 46 (10.0-50.0); Monocytes % (manual) 14 (0-12); Reactive Lymphocytes 5
[2020-08-30 09:00] VITALS: BP 108/58
[2020-08-30] MEDS: PANTOPRAZOLE 40 MG TAB PO SCH (09:25)
[2020-08-30] MEDS: DOCUSATE SOD 100 MG CAP PO SCH ×2 (09:25→22:20)
[2020-08-30] MEDS: URSODIOL 300 MG CAP PO SCH ×2 (09:25→22:20)
[2020-08-30 13:00] VITALS: BP 113/59
[2020-08-30 17:00] VITALS: BP 109/56
[2020-08-30 22:00] VITALS: BP 110/58
[2020-08-31 05:00] VITALS: BP 94/48
[2020-08-31] MEDS: IPRATROPIUM BROM 0.5 MG/2.5ML INH SOL NEB SCH ×3 (05:57→22:42)
[2020-08-31 07:27] LABS: Hemoglobin 7.9 g/dL (13.5-17.5)
[2020-08-31 07:30] LABS: Hematocrit 22.2 % (41.0-53.0); Mean Corpuscular Hemoglobin 35.2 pg (28.0-32.0); Mean Corpuscular Hgb Conc. 35.7 g/dL (32.0-36.0); Mean Corpuscular Volume 98.7 fL (80.0-100.0); Platelet Count (auto) 184 10^3/uL (140-450); Red Blood Cells 2.25 10^6/uL (4.5-5.90); White Blood Cell 7.2 10^3/uL (4.4-10.8)
[2020-08-31 07:32] LABS: Red Cell Distribution Width 28.3 % (11.8-14.3)
[2020-08-31 07:34] LABS: Basophils % (manual) 0 (0.0-2.0); Blast Cells 0; Metamyelocytes % 0; Promyelocytes % 0; Reactive Lymphocytes 0
[2020-08-31 07:42] LABS: Potassium 3.9 mmol/L (3.5-5.1)
[2020-08-31 07:50] LABS: Albumin 2.3 g/dL (3.4-5.0); Bilirubin, Total 5.5 mg/dL (0.2-1.0); Calcium 9.2 mg/dL (8.5-10.1); Total Protein 5.5 g/dL (6.4-8.2)
[2020-08-31 08:00] LABS: Band Neutrophils % (manual) 1; Eosinophils % (manual) 2 (0-7); Lymphocytes % (manual) 45 (10.0-50.0); Monocytes % (manual) 25 (0-12); Myelocytes % 1
[2020-08-31] MEDS: HYDROcodone-ACET 5/325MG TAB PO PRN ×2 (08:19→16:46)
[2020-08-31 09:09] VITALS: BP 123/59
[2020-08-31] MEDS: DOCUSATE SOD 100 MG CAP PO SCH ×2 (09:43→22:04)
[2020-08-31] MEDS: PANTOPRAZOLE 40 MG TAB PO SCH (09:43)
[2020-08-31] MEDS: URSODIOL 300 MG CAP PO SCH ×2 (09:43→22:04)
[2020-08-31 13:00] VITALS: BP 123/62
[2020-08-31 16:58] VITALS: BP 112/51
[2020-08-31 22:00] VITALS: BP 100/53
[2020-09-01] MEDS: HYDROcodone-ACET 5/325MG TAB PO PRN ×3 (00:53→17:14)
[2020-09-01 05:00] VITALS: BP 117/56
[2020-09-01 05:56] LABS: White Blood Cell 7.4 10^3/uL (4.4-10.8)
[2020-09-01 05:58] LABS: Hematocrit 22.7 % (41.0-53.0); Mean Corpuscular Hgb Conc. 35.2 g/dL (32.0-36.0); Mean Corpuscular Volume 99.5 fL (80.0-100.0); Platelet Count (auto) 194 10^3/uL (140-450); Red Blood Cells 2.28 10^6/uL (4.5-5.90)
[2020-09-01 06:02] LABS: Red Cell Distribution Width 28.6 % (11.8-14.3)
[2020-09-01 06:04] LABS: Band Neutrophils % (manual) 0; Basophils % (manual) 0 (0.0-2.0); Blast Cells 0; Metamyelocytes % 0; Promyelocytes % 0; Reactive Lymphocytes 0
[2020-09-01 06:09] LABS: Albumin 2.3 g/dL (3.4-5.0); Calcium 9.1 mg/dL (8.5-10.1); Potassium 3.9 mmol/L (3.5-5.1)
[2020-09-01 06:12] LABS: BUN/Creatinine Ratio 27.1; Bilirubin, Total 5.4 mg/dL (0.2-1.0); Total Protein 5.5 g/dL (6.4-8.2)
[2020-09-01 06:33] LABS: Eosinophils % (manual) 4 (0-7); Lymphocytes % (manual) 61 (10.0-50.0); Monocytes % (manual) 4 (0-12); Myelocytes % 1
[2020-09-01] MEDS: IPRATROPIUM BROM 0.5 MG/2.5ML INH SOL NEB SCH ×3 (06:58→22:51)
[2020-09-01] MEDS: URSODIOL 300 MG CAP PO SCH ×2 (08:41→22:30)
[2020-09-01] MEDS: DOCUSATE SOD 100 MG CAP PO SCH ×2 (08:41→22:30)
[2020-09-01] MEDS: PANTOPRAZOLE 40 MG TAB PO SCH (08:41)
[2020-09-01 09:00] VITALS: BP 124/69
[2020-09-01 13:00] VITALS: BP 102/56
[2020-09-01 17:00] VITALS: BP 113/55
[2020-09-01 22:00] VITALS: BP 108/53
[2020-09-02] MEDS: HYDROcodone-ACET 5/325MG TAB PO PRN ×3 (00:57→17:25)
[2020-09-02 05:00] VITALS: BP 100/46
[2020-09-02] MEDS: IPRATROPIUM BROM 0.5 MG/2.5ML INH SOL NEB SCH ×3 (07:30→21:44)
[2020-09-02 09:00] VITALS: BP 117/56
[2020-09-02] MEDS: PANTOPRAZOLE 40 MG TAB PO SCH (09:18)
[2020-09-02] MEDS: DOCUSATE SOD 100 MG CAP PO SCH ×2 (09:18→21:39)
[2020-09-02] MEDS: URSODIOL 300 MG CAP PO SCH ×2 (11:34→21:40)
[2020-09-02 11:58] LABS: Hemoglobin 8.1 g/dL (13.5-17.5); Red Blood Cells 2.28 10^6/uL (4.5-5.90)
[2020-09-02 12:00] LABS: Hematocrit 22.9 % (41.0-53.0); Mean Corpuscular Hemoglobin 35.3 pg (28.0-32.0); Mean Corpuscular Hgb Conc. 35.1 g/dL (32.0-36.0); Mean Corpuscular Volume 100.6 fL (80.0-100.0); Platelet Count (auto) 200 10^3/uL (140-450); White Blood Cell 7.4 10^3/uL (4.4-10.8)
[2020-09-02 12:05] LABS: Red Cell Distribution Width 28.8 % (11.8-14.3)
[2020-09-02 12:06] LABS: Band Neutrophils % (manual) 0; Basophils % (manual) 0 (0.0-2.0); Blast Cells 0; Metamyelocytes % 0; Myelocytes % 0; Promyelocytes % 0
[2020-09-02 12:39] LABS: Eosinophils % (manual) 3 (0-7); Lymphocytes % (manual) 63 (10.0-50.0); Monocytes % (manual) 10 (0-12); Reactive Lymphocytes 2
[2020-09-02 13:00] VITALS: BP 108/51
[2020-09-02 17:00] VITALS: BP 113/56
[2020-09-02 22:00] VITALS: BP 106/64
[2020-09-03] MEDS: HYDROcodone-ACET 5/325MG TAB PO PRN ×4 (01:36→22:21)
[2020-09-03 05:00] VITALS: BP 100/53
[2020-09-03] MEDS: IPRATROPIUM BROM 0.5 MG/2.5ML INH SOL NEB SCH ×3 (06:28→21:50)
[2020-09-03 09:00] VITALS: BP 107/55
[2020-09-03] MEDS: PANTOPRAZOLE 40 MG TAB PO SCH (10:24)
[2020-09-03] MEDS: DOCUSATE SOD 100 MG CAP PO SCH ×2 (10:24→22:21)
[2020-09-03] MEDS: URSODIOL 300 MG CAP PO SCH ×2 (10:25→22:19)
[2020-09-03 13:00] VITALS: BP 105/56
[2020-09-03 17:09] VITALS: BP 92/53
[2020-09-03 21:56] VITALS: BP 109/57
[2020-09-03] MEDS ORDERED: ACETAMINOPHEN 500 MG TAB PO PRN (22:15)
[2020-09-04] MEDS: HYDROcodone-ACET 5/325MG TAB PO PRN ×5 (02:15→19:45)
[2020-09-04 04:52] VITALS: BP 102/45
[2020-09-04] MEDS: IPRATROPIUM BROM 0.5 MG/2.5ML INH SOL NEB SCH ×3 (06:39→23:00)
[2020-09-04 09:00] VITALS: BP 106/51
[2020-09-04] MEDS: PANTOPRAZOLE 40 MG TAB PO SCH (10:20)
[2020-09-04] MEDS: DOCUSATE SOD 100 MG CAP PO SCH ×2 (10:20→22:00)
[2020-09-04] MEDS: URSODIOL 300 MG CAP PO SCH ×2 (10:20→22:00)
[2020-09-04 13:00] VITALS: BP 108/51
[2020-09-04 17:00] VITALS: BP 104/48
[2020-09-04 21:31] VITALS: BP 111/60
[2020-09-05] MEDS: HYDROcodone-ACET 5/325MG TAB PO PRN ×6 (02:50→23:56)
[2020-09-05 04:00] VITALS: BP 102/50
[2020-09-05] MEDS: IPRATROPIUM BROM 0.5 MG/2.5ML INH SOL NEB SCH ×4 (06:29→22:40)
[2020-09-05 09:00] VITALS: BP 100/53
[2020-09-05] MEDS: DOCUSATE SOD 100 MG CAP PO SCH ×2 (09:49→22:00)
[2020-09-05] MEDS: URSODIOL 300 MG CAP PO SCH ×2 (09:49→22:00)
[2020-09-05] MEDS: PANTOPRAZOLE 40 MG TAB PO SCH (09:50)
[2020-09-05 13:00] VITALS: BP 93/53
[2020-09-05 15:18] VITALS: BP 93/53
[2020-09-05 16:57] VITALS: BP 112/54
[2020-09-05 22:00] VITALS: BP 115/60
[2020-09-06] MEDS: HYDROcodone-ACET 5/325MG TAB PO PRN ×5 (04:27→22:17)
[2020-09-06 05:00] VITALS: BP 102/55
[2020-09-06] MEDS: IPRATROPIUM BROM 0.5 MG/2.5ML INH SOL NEB SCH ×3 (06:00→22:10)
[2020-09-06 08:55] VITALS: BP 105/55
[2020-09-06] MEDS: DOCUSATE SOD 100 MG CAP PO SCH ×2 (10:37→22:16)
[2020-09-06] MEDS: PANTOPRAZOLE 40 MG TAB PO SCH (10:37)
[2020-09-06] MEDS: URSODIOL 300 MG CAP PO SCH ×2 (10:37→22:16)
[2020-09-06 13:00] VITALS: BP 108/57
[2020-09-06 17:00] VITALS: BP 102/49
[2020-09-06 22:00] VITALS: BP 110/47
[2020-09-07 05:00] VITALS: BP 105/50
[2020-09-07 06:13] LABS: Hemoglobin 7.8 g/dL (13.5-17.5)
[2020-09-07 06:15] LABS: Hematocrit 21.7 % (41.0-53.0); Mean Corpuscular Hemoglobin 36.5 pg (28.0-32.0); Mean Corpuscular Hgb Conc. 35.9 g/dL (32.0-36.0); Mean Corpuscular Volume 101.7 fL (80.0-100.0); Platelet Count (auto) 187 10^3/uL (140-450); Red Blood Cells 2.13 10^6/uL (4.5-5.90); White Blood Cell 8.1 10^3/uL (4.4-10.8)
[2020-09-07 06:36] LABS: Potassium 3.8 mmol/L (3.5-5.1); Red Cell Distribution Width 29.5 % (11.8-14.3)
[2020-09-07 06:37] LABS: Basophils % (manual) 0 (0.0-2.0); Blast Cells 0; Myelocytes % 0; Promyelocytes % 0; Reactive Lymphocytes 0
[2020-09-07 06:50] LABS: Albumin 2.3 g/dL (3.4-5.0); BUN/Creatinine Ratio 27.9; Calcium 8.6 mg/dL (8.5-10.1); Total Protein 5.6 g/dL (6.4-8.2)
[2020-09-07 07:22] LABS: Band Neutrophils % (manual) 1; Eosinophils % (manual) 1 (0-7); Lymphocytes % (manual) 52 (10.0-50.0); Metamyelocytes % 1; Monocytes % (manual) 4 (0-12)
[2020-09-07] MEDS: IPRATROPIUM BROM 0.5 MG/2.5ML INH SOL NEB SCH ×3 (07:54→19:17)
[2020-09-07] MEDS: HYDROcodone-ACET 5/325MG TAB PO PRN ×2 (08:16→15:16)
[2020-09-07 08:43] VITALS: BP 106/48
[2020-09-07] MEDS: URSODIOL 300 MG CAP PO SCH ×2 (09:59→22:41)
[2020-09-07] MEDS: DOCUSATE SOD 100 MG CAP PO SCH ×2 (10:00→22:41)
[2020-09-07] MEDS: PANTOPRAZOLE 40 MG TAB PO SCH (10:00)
[2020-09-07 13:04] VITALS: BP 101/49
[2020-09-07 16:42] VITALS: BP 120/56
[2020-09-08] MEDS: HYDROcodone-ACET 5/325MG TAB PO PRN ×3 (01:47→21:27)
[2020-09-08 05:00] VITALS: BP 104/55
[2020-09-08] MEDS: IPRATROPIUM BROM 0.5 MG/2.5ML INH SOL NEB SCH ×3 (06:40→21:41)
[2020-09-08 08:32] VITALS: BP 120/56
[2020-09-08 09:00] VITALS: BP 112/53
[2020-09-08] MEDS: DOCUSATE SOD 100 MG CAP PO SCH ×2 (10:06→21:14)
[2020-09-08] MEDS: URSODIOL 300 MG CAP PO SCH ×2 (10:06→21:14)
[2020-09-08] MEDS: PANTOPRAZOLE 40 MG TAB PO SCH (10:07)
[2020-09-08 12:59] VITALS: BP 112/57
[2020-09-08 16:54] VITALS: BP 102/64
[2020-09-08] MEDS: [UNRECOGNIZED DRUG - OTHER] IM SCH ×2 (19:55→23:31)
[2020-09-08 22:52] VITALS: BP 107/47
[2020-09-09] MEDS: HYDROcodone-ACET 5/325MG TAB PO PRN ×3 (04:21→19:51)
[2020-09-09] MEDS: [UNRECOGNIZED DRUG - OTHER] IM SCH ×2 (04:21→08:40)
[2020-09-09 05:12] VITALS: BP 101/49
[2020-09-09] MEDS: URSODIOL 300 MG CAP PO SCH ×2 (10:07→21:19)
[2020-09-09] MEDS: DOCUSATE SOD 100 MG CAP PO SCH ×2 (10:07→21:20)
[2020-09-09] MEDS: PANTOPRAZOLE 40 MG TAB PO SCH (10:08)
[2020-09-09 12:38] VITALS: BP 92/50
[2020-09-09 16:47] VITALS: BP 111/53
[2020-09-09 22:56] VITALS: BP 107/53
[2020-09-10] MEDS: HYDROcodone-ACET 5/325MG TAB PO PRN ×4 (03:52→20:07)
[2020-09-10 05:18] VITALS: BP 105/50
[2020-09-10 09:00] VITALS: BP 124/64
[2020-09-10] MEDS: DOCUSATE SOD 100 MG CAP PO SCH ×2 (09:52→21:32)
[2020-09-10] MEDS: URSODIOL 300 MG CAP PO SCH ×2 (09:53→21:32)
[2020-09-10] MEDS: [UNRECOGNIZED DRUG - OTHER] IM SCH (09:54)
[2020-09-10 13:00] VITALS: BP 98/43
[2020-09-10 17:00] VITALS: BP 110/55
[2020-09-10 22:00] VITALS: BP 119/63
[2020-09-11] MEDS: HYDROcodone-ACET 5/325MG TAB PO PRN ×3 (01:22→14:16)
[2020-09-11 05:00] VITALS: BP 108/54
[2020-09-11 09:00] VITALS: BP 118/60
[2020-09-11] MEDS: DOCUSATE SOD 100 MG CAP PO SCH (11:15)
[2020-09-11] MEDS: URSODIOL 300 MG CAP PO SCH (11:15)
[2020-09-11] MEDS: [UNRECOGNIZED DRUG - OTHER] IM SCH (11:15)
[2020-09-11 12:35] VITALS: BP 113/51
[2020-09-11 13:15] VITALS: BP 113/51
[2020-09-11 16:39] VITALS: BP 115/60
== END 2020-09-11 18:10 | disposition hospice, home (50) | DRG 853 ==
LOC: CATH 12:53 → ICU WEST 12:56 → TELE-WESTW 08-14 03:59
PROVIDERS: ADMIT Internal Medicine Cardiovascular Disease; ATTEND Internal Medicine Cardiovascular Disease
PROC: 0BH17EZ Insertion of Endotracheal Airway into Trachea, Via Natural or Artificial Opening (ICD-10-PCS; 2020-08-09)
PROC: 5A1945Z Respiratory Ventilation, 24-96 Consecutive Hours (ICD-10-PCS; 2020-08-09)
PROC: 4A023N7 Measurement of Cardiac Sampling and Pressure, Left Heart, Percutaneous Approach (ICD-10-PCS; 2020-08-10)
PROC: B2111ZZ Fluoroscopy of Multiple Coronary Arteries using Low Osmolar Contrast (ICD-10-PCS; 2020-08-10)
PROC: B2151ZZ Fluoroscopy of Left Heart using Low Osmolar Contrast (ICD-10-PCS; 2020-08-10)
PROC: 30233N1 Transfusion of Nonautologous Red Blood Cells into Peripheral Vein, Percutaneous Approach (ICD-10-PCS; 2020-08-12)
PROC: 0JH609Z Insertion of Cardiac Resynchronization Defibrillator Pulse Generator into Chest Subcutaneous Tissue and Fascia, Open Approach (ICD-10-PCS; principal; 2020-08-17)
PROC: 02HL3KZ Insertion of Defibrillator Lead into Left Ventricle, Percutaneous Approach (ICD-10-PCS; 2020-08-17)
PROC: 02H63KZ Insertion of Defibrillator Lead into Right Atrium, Percutaneous Approach (ICD-10-PCS; 2020-08-17)
PROC: 02HK3KZ Insertion of Defibrillator Lead into Right Ventricle, Percutaneous Approach (ICD-10-PCS; 2020-08-17)
PROC: 0DB68ZX Excision of Stomach, Via Natural or Artificial Opening Endoscopic, Diagnostic (ICD-10-PCS; 2020-08-22)
DX: A41.9 Sepsis, unspecified organism (principal); I21.4 Non-ST elevation (NSTEMI) myocardial infarction; J96.01 Acute respiratory failure with hypoxia; J18.9 Pneumonia, unspecified organism; I50.23 Acute on chronic systolic (congestive) heart failure; I42.0 Dilated cardiomyopathy; J98.11 Atelectasis; I47.2 Ventricular tachycardia; E87.0 Hyperosmolality and hypernatremia; D61.818 Other pancytopenia; D58.9 Hereditary hemolytic anemia, unspecified; J44.0 Chronic obstructive pulmonary disease with (acute) lower respiratory infection; K76.6 Portal hypertension; D63.8 Anemia in other chronic diseases classified elsewhere; E78.5 Hyperlipidemia, unspecified; I25.10 Atherosclerotic heart disease of native coronary artery without angina pectoris; K29.70 Gastritis, unspecified, without bleeding; K44.9 Diaphragmatic hernia without obstruction or gangrene; K72.90 Hepatic failure, unspecified without coma; K74.60 Unspecified cirrhosis of liver; K82.8 Other specified diseases of gallbladder; Z20.822 Contact with and (suspected) exposure to COVID-19
CPT/HCPCS: 33225; 33249; 36415; 36600; 43239; 71045; 74177; 76700; 80048; 80053; 81001; 82105; 82150; 82248; 82270; 82565; 82728; 82805; 83010; 83540; 83550; 83615; 83690; 83735; 83880; 84100; 84132; 85007; 85014; 85018; 85025; 85027; 85045; 85610; 85730; 86704; 86706; 86708; 86803; 86850; 86880; 86885; 86900; 86901; 86920; 87081; 87340; 92610; 93005; 93458; 94002; 94003; 94640; 97110; 97116; 97530; 99152; 99153; G0378; J2250; J2543; J2704